=== PATIENT | female | born 1955 | race Caucasian/White ===

== ENCOUNTER → 2017-03-03 | Outpatient (CLI) | payer BC ==
[2016-11-24 08:00] VITALS: BP 131/69
[~2017-03-03] MED LIST: APRE30TA2 PO; ASPI-482 PO; BUDE0.5A11 NEB; CHOL2000 PO; CIPR250T30 PO; COLC0.6T34 PO; CYAN10005 PO; FEBU80TA2 PO; FEXO180T16 PO; FEXO60TA25 PO; FLUO20CA16 PO; FLUT1DIS3 INH; HYDR12.553 PO; INSU100I17 SQ; INSU200I4 SQ; IRON1TAB30 PO; MAGN400T22 PO; METF500T4 PO; METF500T9 PO; MULT-208 PO; OLME1TAB23 PO; OLME20TA19 PO; OMEG1CAP2 PO; PANT40TA3 PO; PRED-220 PO; TRAM50TA PO
--- NOTE | 2017-03-03 13:51 | RAD ---
DATE: DATE: 03/03/2017 EXAM: MAMMO GEOVANNI SCREENING BILATERAL HISTORY: Screening COMPARISON: 11/03/2015 This study was interpreted with the benefit of Computerized Aided Detection (CAD ). FINDINGS: Breast Density: SCATTERED The breast parenchyma shows scattered fibroglandular densities. Breast parenchyma level B. There has been little change in the appearance of the breasts compared to the previous exam IMPRESSION: Benign findings BI-RADS CATEGORY: 2 BENIGN FINDING(S) RECOMMENDED FOLLOW-UP: 12M 12 MONTH FOLLOW-UP PQRS compliance statement: Patient information was entered into a reminder system with a target due date 03/03/2018 for the next mammogram. Mammography is a sensitive method for finding small breast cancers, but it does not detect them all and is not a substitute for careful clinical examination. A negative mammogram does not negate a clinically suspicious finding and should not result in delay in biopsying a clinically suspicious abnormality. "Our facility is accredited by the [employer] Mammography Program." JAILENE
== END | disposition home or self-care (01) ==
LOC: MAMMO 07:45
PROVIDERS: ATTEND Family Medicine
DX: Z12.31 Encounter for screening mammogram for malignant neoplasm of breast (principal)
CPT/HCPCS: 77063; G0202; 77067

== ENCOUNTER → 2017-07-27 | Outpatient (CLI) | payer BC ==
[2016-11-24 08:00] VITALS: BP 131/69
--- NOTE | 2017-07-27 19:17 | RAD ---
Left lower extremity venous duplex study 07/27/2017 Clinical History: Left leg swelling for several months with palpable abnormality involving the posterior thigh. Technique: Using a combination of real time ultrasound imaging and color-flow and pulse Doppler imaging techniques along with graded compression and augmentation, duplex evaluation of the deep venous system of the left lower extremity was performed. Multiple images were obtained. Findings: There is no sonographic evidence of deep venous thrombosis involving the visualized deep venous structures of left lower extremity. No abnormal soft tissue mass or fluid collection is seen within the posterior left thigh in the area of the patient's pain. Impression: Negative study. Electronically signed by: Taras Cardona MD (07/27/2017 7:14 PM) [facility]
== END | disposition home or self-care (01) ==
LOC: US 16:45
PROVIDERS: ATTEND Family Medicine
DX: M79.605 Pain in left leg (principal); M79.89 Other specified soft tissue disorders; E11.8 Type 2 diabetes mellitus with unspecified complications
CPT/HCPCS: 93971

== ENCOUNTER → 2017-10-19 | Outpatient (CLI) | payer BC ==
[2016-11-24 08:00] VITALS: BP 131/69
--- NOTE | 2017-10-19 13:22 | RAD ---
Chest, 2 views, 10/19/2017: History: Cough Comparison is made to a study from 11/26/2014. The heart size and pulmonary vascularity are normal. No pulmonary infiltrates are seen. There is no evidence of pleural fluid. Mild spurring is present in the spine. IMPRESSION: No acute cardiopulmonary abnormality is detected.
== END | disposition home or self-care (01) ==
LOC: RAD 13:03
PROVIDERS: ATTEND Family Medicine
DX: R05 Cough (principal); N39.46 Mixed incontinence
CPT/HCPCS: 71046

== ENCOUNTER 2017-11-02 08:19 | Observation (INO) | payer BC ==
[~2017-11-02] VITALS: Ht 157.5 cm; Wt 95.0 kg
--- NOTE | 2017-11-02 08:43 | RAD ---
CT head without contrast History: Right facial droop and tongue numbness beginning at 0800 hours, code stroke. Comparison: CT head 10/08/2014. Procedure: Axial images are obtained of the head from the skull base through the vertex without IV contrast. One or more of the following individualized dose reduction techniques were utilized for the study: Automated exposure control Adjustment of mA and/or kV according to patient's size Use of iterative reconstruction technique. Findings: The ventricles and sulci are normal for the patient's age. No mass-effect, intracranial mass, midline shift, hemorrhage or obvious acute infarction is identified. Basilar cisterns are patent. Bone windows demonstrate no significant calvarial abnormality. Incompletely seen is bilateral maxillary sinus disease. Impression: 1. No acute intracranial process. Please note that CT can be relatively insensitive to acute ischemic infarction for up to 24 hours after symptom onset. 2. Results discussed with emergency department staff, Dr. Nuno, at 0840 hours.
[2017-11-02 08:53] LABS: BASO # 0.1 x10^3/uL (0.0-0.2); BASO % 1 % (0-3); EOS # 0.2 x10^3/uL (0.0-0.7); EOS % 2 % (0-3); HEMATOCRIT 38.9 % (36.0-47.0); HEMOGLOBIN 12.4 g/dL (12.0-15.5); LYMPH # 3.1 x10^3/uL (1.0-4.8); LYMPH % 27 % (24-48); MEAN CORPUSCULAR HEMOGLOBIN 24 pg (25-35); MEAN CORPUSCULAR HGB CONC 32 g/dL (31-37); MEAN CORPUSCULAR VOLUME 76 fL (79-100); MONO # 0.8 x10^3/uL (0.0-1.1); MONO % 7 % (0-9); NEUT # 7.5 x10^3uL (1.8-7.7); NEUT % 64 % (31-73); PLATELET COUNT 295 x10^3/uL (140-400); RED BLOOD COUNT 5.14 x10^6/uL (3.50-5.40); RED CELL DISTRIBUTION WIDTH 16.6 % (11.5-14.5); WHITE BLOOD COUNT 11.7 x10^3/uL (4.0-11.0)
[2017-11-02] MEDS ORDERED: ACETAMINOPHEN 500 MG TABLET PO ONE (09:00)
[2017-11-02] MEDS ORDERED: ONDANSETRON PF 4 MG/2 ML VIAL. IV PRN (09:00)
[2017-11-02] MEDS ORDERED: ACETAMINOPHEN 325 MG TABLET PO PRN (09:00)
[2017-11-02] MEDS ORDERED: ASPIRIN 325 MG TABLET PO ONE (09:00)
--- NOTE | 2017-11-02 09:14 | ED.ADGEN ---
Past History Past Medical History: Diabetes, GERD, Hypertension, Other Past Surgical History: Cholecystectomy, Hysterectomy Alcohol Use: None Drug Use: None Adult General Chief Complaint Chief Complaint FACIAL WEAKNESS HPI HPI Patient is a 61 year old female who presents with R side facial weakness and inability to close her R eye starting around 8 am. She also states she awoke with a headache, which is not common for her. She reports R tongue numbness as well. Coworkers noted facial droop. No prior strokes, no h/o bells palsy, reports recent post-nasal drip, otherwise she has been feeling well. Normally takes 81 mg asa daily, none yet today, no other anticoagulation. PCP is Dr. Winston. Review of Systems Review of Systems Constitutional: Denies fever or chills [] Eyes: Denies change in visual acuity, redness, or eye pain [] HENT: per hpi Respiratory: Denies cough or shortness of breath [] Cardiovascular: Denies chest pain GI: Denies abdominal pain, nausea, vomiting, bloody stools or diarrhea [] : Denies dysuria or hematuria [] Musculoskeletal: Denies back pain or joint pain [] Integument: Denies rash or skin lesions [] Neurologic: per hpi, denies focal extremity weakness, denies ataxia Current Medications Current Medications Current Medications Medications (Trade) Dose Ordered Sig/Fish Start Time Stop Time Status Last Admin Dose Admin Acetaminophen (Tylenol) 1,000 mg 1X ONCE 11/02/17 09:00 11/02/17 09:17 DC 11/02/17 09:10 1,000 MG Aspirin (Angeles Aspirin) 325 mg 1X ONCE 11/02/17 09:00 11/02/17 09:01 DC 11/02/17 09:10 325 MG Ondansetron HCl (Zofran) 4 mg PRN Q4HRS PRN 11/02/17 09:00 11/03/17 08:59 Allergies Allergies Allergies Coded Allergies Type Severity Reaction Last Updated Verified Penicillins Allergy Intermediate 11/22/16 Yes Sulfa (Sulfonamide Antibiotics) Allergy Intermediate 11/22/16 Yes sitagliptin Allergy Intermediate 11/22/16 Yes Physical Exam Physical Exam Constitutional: Well developed, well nourished, no acute distress, non-toxic appearance. [] HENT: Normocephalic, atraumatic, bilateral external ears normal, oropharynx moist, no oral exudates, nose normal. [] Eyes: PERRLA, EOMI, conjunctiva normal, no discharge, not blinking with right eye normally, she is able to close the eye completely when she attempted to forcefully close the eye Neck: Normal range of motion, no tenderness, supple, no stridor, no nuchal rigidity Cardiovascular:Heart rate regular with regular rhythm, no murmur [] Lungs & Thorax: Bilateral breath sounds clear to auscultation, no wheeze or crackles Abdomen: soft, no tenderness, no masses, no pulsatile masses. [] Skin: Warm, dry, no erythema, no rash. [] Back: No tenderness, no CVA tenderness. [] Extremities: No tenderness, no cyanosis, no clubbing, ROM intact, no edema. 5/5 bilateral hand house mover and bilateral hip flexors Neurologic: Alert and oriented X 3, normal motor function,R side facial droop/ loss of labial fold at rest, she is unable to blow air into the R cheek, CN's intact with exception of decreased strength of CNXI to the R head turn, she has decreased closures of R eyelid but is able to full close, when she raises her eyebrows there is symmetry across the forehead. Psychologic: Affect normal, judgement normal, mood normal. [] Current Patient Data Lab Results Laboratory Tests Test 11/02/17 08:29 11/02/17 08:43 Glucose (Fingerstick) 168 mg/dL (70-99) H White Blood Count 11.7 x10^3/uL (4.0-11.0) H Red Blood Count 5.14 x10^6/uL (3.50-5.40) Hemoglobin 12.4 g/dL (12.0-15.5) Hematocrit 38.9 % (36.0-47.0) Mean Corpuscular Volume 76 fL (79-100) L Mean Corpuscular Hemoglobin 24 pg (25-35) L Mean Corpuscular Hemoglobin Concent 32 g/dL (31-37) Red Cell Distribution Width 16.6 % (11.5-14.5) H Platelet Count 295 x10^3/uL (140-400) Neutrophils (%) (Auto) 64 % (31-73) Lymphocytes (%) (Auto) 27 % (24-48) Monocytes (%) (Auto) 7 % (0-9) Eosinophils (%) (Auto) 2 % (0-3) Basophils (%) (Auto) 1 % (0-3) Neutrophils # (Auto) 7.5 x10^3uL (1.8-7.7) Lymphocytes # (Auto) 3.1 x10^3/uL (1.0-4.8) Monocytes # (Auto) 0.8 x10^3/uL (0.0-1.1) Eosinophils # (Auto) 0.2 x10^3/uL (0.0-0.7) Basophils # (Auto) 0.1 x10^3/uL (0.0-0.2) Prothrombin Time 10.4 SEC (9.4-11.4) Prothrombin Time INR 1.0 (0.9-1.1) PTT 28 SEC (23-33) Sodium Level 139 mmol/L (136-145) Potassium Level 4.5 mmol/L (3.5-5.1) Chloride Level 104 mmol/L (98-107) Carbon Dioxide Level 24 mmol/L (21-32) Anion Gap 11 (6-14) Blood Urea Nitrogen 15 mg/dL (7-20) Creatinine 1.0 mg/dL (0.6-1.0) Estimated GFR (Cockcroft-Gault) 56.4 BUN/Creatinine Ratio 15 (6-20) Glucose Level 161 mg/dL (70-99) H Calcium Level 8.7 mg/dL (8.5-10.1) Total Bilirubin 0.7 mg/dL (0.2-1.0) Aspartate Amino Transferase (AST) 48 U/L (15-37) H Alanine Aminotransferase (ALT) 48 U/L (14-59) Alkaline Phosphatase 110 U/L (46-116) Total Protein 7.7 g/dL (6.4-8.2) Albumin 3.2 g/dL (3.4-5.0) L Albumin/Globulin Ratio 0.7 (1.0-1.7) L EKG EKG At 0849: 89 bpm, sinus, normal axis, normal intervals, no ST elevation or depression, nonischemic T waves, interpreted by pa Radiology/Procedures Radiology/Procedures CT head: Impression: 1. No acute intracranial process. Please note that CT can be relatively insensitive to acute ischemic infarction for up to 24 hours after symptom onset. Course & Med Decision Making Course & Med Decision Making Pertinent Labs and Imaging studies reviewed. (See chart for details) Acute check performed, patient taken to CT scanner as a code stroke. Patient's symptoms most likely consistent with Boyle's palsy however is complicated by the fact that she woke up with a headache, has symmetry of her bilateral forehead and has weakness with turning her head. Her NIH is 1, she was given an aspirin after review of the CT of her head. I spoke with Dr. Rivera who did not recommend TPA but did recommend admission to the hospital and he will evaluate her this morning. I notified the patient's primary care physician of the plans for admission, I spoke with Dr. Garrido, who accepted the patient for admission. Plan to transfer via [facility]. Pt is stable at this time, headache treated with PO Tylenol Final Impression Final Impression Acute Boyle's Palsy vs CVA Headache.[] Problems: Dragon Disclaimer Dragon Disclaimer This electronic medical record was generated, in whole or in part, using a voice recognition dictation system. MARIUM LARSON MD Nov 02, 2017 09:14
[2017-11-02 09:34] LABS: ALBUMIN 3.2 g/dL (3.4-5.0); ALBUMIN/GLOBULIN RATIO 0.7 (1.0-1.7); CALCIUM 8.7 mg/dL (8.5-10.1); GFR 56.4; POTASSIUM 4.5 mmol/L (3.5-5.1); TOTAL BILIRUBIN 0.7 mg/dL (0.2-1.0); TOTAL PROTEIN 7.7 g/dL (6.4-8.2)
[2017-11-02 10:58] VITALS: BP 125/70
[2017-11-02] MEDS ORDERED: OLME40TA12 PO (13:42)
[2017-11-02] MEDS ORDERED: HYDR-2766 PO (13:42)
[2017-11-02] MEDS ORDERED: TRAM50TA PO (13:42)
--- NOTE | 2017-11-02 13:57 | EKG ---
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
[2017-11-02 15:36] VITALS: BP 127/69
[2017-11-02] MEDS ORDERED: HYDROcodone/APAP 10/325 1 TAB TABLET PO PRN (16:15)
[2017-11-02] MEDS ORDERED: traMADol 50 MG TABLET PO PRN (16:15)
[2017-11-02] MEDS: INSULIN ASPART 300 UNITS/3 ML INSULN.PEN SQ SCH (17:07)
--- NOTE | 2017-11-02 17:50 | HP ---
ADMIT DATE: 11/02/2017 HISTORY OF PRESENT ILLNESS: The patient is a 61-year-old female patient who came to the Emergency Room with right-sided facial weakness and inability to close the right eye starting around 8 o'clock in the morning. She also states that she walked with a headache that is not common for her. She reports right tongue numbness as well. 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 She has no history of strokes or history of Boyle's palsy before, did have chronic cough variant, bronchial asthma, and has postnasal drip. She takes about 81 mg of aspirin daily. She was evaluated in the Emergency Room, she was extensively investigated clinically and she had had imaging. Her CT scan of the head showed that the ventricles and sulci are normal for the patient's age. No mass effect, intracranial mass, midline shift, hemorrhage or obvious acute infarction identified. Basilar cisterns are patent. Bone windows demonstrate no significant calvarial abnormality incompletely seen. She has bilateral maxillary sinus disease. Her lab works were essentially unremarkable and was admitted for further evaluation and treatment and we did consult Dr. Rivera to evaluate the patient. PAST MEDICAL HISTORY: Significant for type 2 diabetes mellitus, hypertension, hyperlipidemia, cough variant bronchial asthma, gastroesophageal reflux disease. She has also psoriatic arthritis affecting both hands and feet. PAST SURGICAL HISTORY: Significant for total abdominal hysterectomy, bilateral salpingo-oophorectomy, cholecystectomy, appendectomy, carpal tunnel release on the right side. She has also de Quervain's tenosynovitis on the left side. She has bilateral cataract extraction as well as bronchoscopy. ALLERGIES: She is allergic to PENICILLIN, SULFA DRUGS, and SITAGLIPTIN. MEDICATIONS: She is currently on the following medication, aspirin 81 mg once a day, cholecalciferol, vitamin D3 2000 international units once a day, cyanocobalamin 500 mcg once a day, Uloric 0.5 mg daily, fluoxetine for Prozac 40 mg once a day, hydrocodone 10/325 one tablet every 6 hours. She is on NovoLog FlexPen 35 units subcutaneously before meals, and Trasiba FlexTouch, she takes 125 units subcutaneously at bedtime, olmesartan medoxomil for Benicar 40 mg once a day, omega-3 fatty acid for Lovaza 2 tablets twice a day. She is also on Protonix 40 mg once a day, and tramadol 50 mg every 6 hours. FAMILY HISTORY: She has one brother older and has coronary artery disease and has had myocardial infarction. Her father at age 94, because of old age. Mother at age 65, because of his gout, aortic aneurysm rupture. SOCIAL HISTORY: She has 2 children from previous marriage. She never smoked, does not drink alcohol or use any recreational drugs. 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 REVIEW OF SYSTEMS: The patient denied any blurring of vision, did have bilateral cataract extraction, but denied any glaucoma or macular degeneration. Denied any earache, tinnitus or sensorineural deafness. Denied any nosebleeds, stuffy nose or postnasal drip. Denied any sore throat, sore tongue, toothache, hoarseness of voice or difficulty swallowing. Did complain of numbness on her tongue on the right side. Denied any nausea, vomiting, diarrhea or constipation. Denied any hematemesis, melena or hematochezia. Denied any dysuria, frequency or hematuria. Denied any chest pain, did complain of shortness of breath at that time with a cough, which is mostly dry. Denied any chills, rigors, or fever. Denied any dizziness, lightheadedness, or vertigo. PHYSICAL EXAMINATION: GENERAL: On arrival to the Emergency Room, she looked well and was clearly in no apparent respiratory distress, pale, jaundice, cyanosis or thyromegaly. No jugular venous distention. No limb edema. VITAL SIGNS: Her heart rate was 85, blood pressure 131/65, temperature was 98.4, respiratory rate was 18, and oxygen saturation was 96%. HEAD, EYES, EARS, NOSE, AND THROAT: Normocephalic, atraumatic. NECK: Supple. HEART: Showed normal first and second heart sounds with no gallop, rub or murmur. CHEST: Clear to auscultation. No crepitation or rhonchi. ABDOMEN: Distended, soft, and nontender. No guarding, rigidity, no organomegaly. Hernial orifices intact. Bowel sounds normal. NEUROLOGIC: She is awake, alert, responding appropriately. She has definitely right-sided facial droop and Boyle's sign inability to close the right eye. He did also complain of numbness in her right side of her tongue, but otherwise all other cranial nerves are intact. She is able to move her extremities without difficulty. She ambulates without assistance or assistive devices. LABORATORY DATA: Showed that her white cell count was 11,700; hemoglobin 12.4, hematocrit 38.9, MCV 76, and platelet count 295,000. Her serum sodium was 139, potassium 4.5, chloride 104, bicarbonate 24, anion gap of 11, BUN 15, creatinine 1, estimated GFR was 56 mL per minute, his glucose 161, calcium was 8.7. Total bilirubin, AST, ALT, alkaline phosphatase were normal. Total protein 7.7, albumin 3.2. His prothrombin time was 10.4, INR of 1, aPTT was 28. His CT scan of the head showed that he has no intracranial process. The ventricles and sulci abnormal for the patient's age. No mass effect, intracranial mass, midline shift, hemorrhage or obvious acute infarcts were identified. Basilar cisterns are a patent IMPRESSION: In summary, this is a 61-year-old female patient, who came in with new onset of right-sided weakness consistent with acute Boyle's palsy versus cerebrovascular accident. There is also headache and some tingling and numbness in the right side of her tongue. PLAN: My plan is to continue with all her medication and consult Dr. Rivera as we might need to start the steroids as soon as possible. GEORGIE KELSEY MD DR: APRIL/jeovanny JOB#: [id number] / [id number]
[2017-11-02] MEDS: methylPREDNISolone SOD SUCC PF 125 MG/2 ML VIAL. IV SCH (19:22)
[2017-11-02 19:31] VITALS: BP 143/89
[2017-11-02] MEDS ORDERED: INSULIN DEGLUDEC SQ SCH (21:00)
[2017-11-02] MEDS ORDERED: INSULIN DETEMIR 300 UNITS/3 ML INSULN.PEN. SQ SCH (21:00)
[2017-11-02] MEDS ORDERED: PANTOPRAZOLE 40 MG TABLET. PO SCH (21:00)
[2017-11-02] MEDS: OMEGA-3 FATTY ACIDS/FISH OIL 1,000 MG CAPSULE. PO SCH (21:28)
[2017-11-02 23:04] VITALS: BP 127/72
[2017-11-03] MEDS: methylPREDNISolone SOD SUCC PF 125 MG/2 ML VIAL. IV SCH ×2 (05:05→14:06)
[2017-11-03 05:26] VITALS: BP 131/76
[2017-11-03] MEDS ORDERED: ASPIRIN ENTERIC COATED 81 MG TABLET.DR. PO SCH (08:00)
[2017-11-03] MEDS ORDERED: FLUoxetine HCL 20 MG CAPSULE PO SCH (08:00)
--- NOTE | 2017-11-03 08:04 | CONS ---
DATE OF CONSULTATION: 11/02/2017 REFERRING PHYSICIAN: Le Garrido M.D. REASON FOR CONSULTATION: Right facial palsy. HISTORY OF PRESENT ILLNESS: This is a 61-year-old right-handed female who was admitted through Emergency Room after she presented with a sudden onset of right facial drooping started at 8 o'clock. The patient also complains of difficulty closing her right eye completely, difficulty chewing on the right side; when she tried to drink liquid or water, the water comes out of her right side of the mouth. She had numbness and tingling of the right side of the tongue The patient stated approximately a week ago, she was suffering from a cough and possible upper respiratory infections. She was seen by her primary care doctor who gave her intramuscular shot of Rocephin and put her on inhaler and nebulizer. The patient also complains of global headaches. She denies photophobia or phonophobia, nausea, vomiting, chest pain, shortness of breath or palpitation. She denies numbness and paresthesia or weakness of the right upper and lower extremities. The patient denies any recent head injuries or fall. She never had any previous Boyle's palsy or stroke. Initial nonenhanced head CT scan revealed no acute intracranial process, otherwise unremarkable. PAST MEDICAL HISTORY: Significant for diabetes mellitus, hypertension, hyperlipidemia, cough variant, brachial asthma, GERD and psoriatic arthritis in the hands and feet. PAST SURGICAL HISTORY: Significant for abdominal hysterectomy, appendectomy, right carpal tunnel release, de Quervain's tenosynovitis on the left side and bilateral cataract extraction. SOCIAL HISTORY: The patient is . She has 3 children. She denies smoking but she drinks alcohol occasionally and she works in the [employer]. FAMILY HISTORY: One brother had coronary artery disease and myocardial infarction. He at the age of 94. Mother at age of 65 of gout and aortic aneurysm rupture. CURRENT HOME MEDICATIONS: Losartan 100 mg daily, Uloric 40 mg daily, Vitamin D3 2000 daily, vitamin B12 500 mcg daily, aspirin 81 mg daily, fish oil 2000 b.i.d., insulin detemir 125 units at bedtime, Protonix 40 mg daily, insulin NovoLog 25 units t.i.d. a.c. subacute, tramadol 50 mg q.6h. p.r.n. for pain, hydrocodone/acetaminophen 10/325 mg 1 tab q.6h. p.r.n. for headaches, Zofran 4 mg IV q.4h. p.r.n. ALLERGIES: SULFA DRUGS, PENICILLIN and SITAGLIPTIN. REVIEW OF SYSTEMS: A 10-point review of system was performed as mentioned above in history of present illness. PHYSICAL EXAMINATION: GENERAL: A moderately obese white female, not in acute distress with BMI of 36.6. VITAL SIGNS: Blood pressure 127/69, respiratory rate 20, pulse is 83, temperature is 98.4, oxygen saturation is 92% on room air. HEENT: Normocephalic, atraumatic, otherwise unremarkable. NECK: Supple. Negative for carotid bruit, lymphadenopathy or thyromegaly. LUNGS: Clear to A and P. CARDIOVASCULAR: Regular rate and rhythm, normal S1, S2. There is no S3, S4 or murmur. ABDOMEN: Soft. Bowel sounds positive. EXTREMITIES: Negative for cyanosis, clubbing, pitting edema. NEUROLOGIC: Mental status: The patient is alert and oriented x 3. Speech is fluent. There is no language dysfunction. Memory, judgment and abstracting thinking are normal. The patient denies hallucination or delusion. CRANIAL NERVES: Visual finley are full. The pupils are reactive to light and accommodation. The extraocular movements are intact. There is no nystagmus. There is peripheral type of right facial palsy. The patient has difficulty to close her eyes tightly compared to the left side. However, the forehead is spared. She cannot whistle and she had a lacrimation on the right side. She has a mild facial asymmetry on the right side when she smiles. She has numbness on the right side of the tongue. Otherwise, there is no facial sensory deficit. Hearing is intact bilaterally. The palate is elevated symmetrically. Sternocleidomastoid muscles are powerful bilaterally. The patient shrugs her shoulders symmetrically and protrudes her tongue in the midline without fasciculation or atrophy. Motor examination: No focal muscle bulk was seen. The tone is normal. The strength is 5/5 throughout. Sensory examination revealed normal pinprick, light touch, vibratory and position senses. Deep tendon reflexes were symmetric and active without pathology responses. Gait and coordinations are normal. DIAGNOSTIC: Nonenhanced head CT scan revealed no acute intracranial process. LABORATORY DATA: CBC revealed white blood cells of 11.7 thousand, hemoglobin 12.4, hematocrit 38.9, platelet count 295,000. Chemistry revealed sodium of 139, potassium 4.5, chloride 104, CO2 24, BUN 15, creatinine 1, glucose is 161. Calcium is 8.7. AST is slightly elevated at 48. Coagulation is normal. INR is 1 and PTT 28. IMPRESSION: 1. Right facial peripheral weakness with symptoms represent a Boyle's palsy; however, the right forehead is spared. 2. Multiple medical problems as outlined above, this includes hypertension; hyperlipidemia, diabetes mellitus, psoriatic arthritis, GERD. RECOMMENDATIONS: 1. We will start the patient on steroid intravenously, then switch to orally. 2. Continue with current management initiated by Dr. Garrido and her home medications. 3. We will follow up in the morning to rule out any clinical findings of central nervous system pathology. As on occasions, acute stroke may represent as a peripheral palsy. 3. We will follow the patient in the morning to rule out any other evidence of central nervous system pathology as sometimes acute stroke may represent with symptoms of peripheral palsy. In this case, a brain MRI will be recommended. M Tracey MOHR MD DR: NEIDA/jeovanny JOB#: [id number] / [id number]
[2017-11-03] MEDS: OMEGA-3 FATTY ACIDS/FISH OIL 1,000 MG CAPSULE. PO SCH (08:13)
[2017-11-03] MEDS: INSULIN ASPART 300 UNITS/3 ML INSULN.PEN SQ SCH ×2 (08:19→12:16)
[2017-11-03] MEDS ORDERED: CHOLECALCIFEROL (VITAMIN D3) 1,000 UNIT TABLET PO SCH (09:00)
[2017-11-03] MEDS ORDERED: FEBUXOSTAT 40 MG TABLET PO SCH (09:00)
[2017-11-03] MEDS ORDERED: CYANOCOBALAMIN (VITAMIN B-12) 1,000 MCG TABLET. PO SCH (09:00)
[2017-11-03] MEDS ORDERED: LOSARTAN 50 MG TABLET. PO SCH (09:00)
[2017-11-03 10:29] VITALS: BP 136/79
[2017-11-03] MEDS ORDERED: METH4TAB2 PO (14:33)
--- NOTE | 2017-11-03 23:53 | DS ---
DATE OF DISCHARGE: 11/03/2017 HOSPITAL COURSE: The patient is a 61-year-old female patient who came yesterday with a new onset of right-sided facial droop and difficulty closing her right eye and also some tingling in the right side of tongue. She was extensively investigated. There was no pathological finding on her CT scan and clinically, she does not have any other motor or sensory deficit. 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 She was given Solu-Medrol and was seen by Dr. Rivera who recommended that she can be discharged home to continue with Medrol Dosepak and to follow with him in 1 week's time and he will arrange for her to have an brain MRI if deemed necessary. PHYSICAL EXAMINATION: GENERAL: When I saw her today, she looked well and was clearly in no apparent respiratory distress, pale, jaundice, cyanosis, or thyromegaly. No jugular venous distension. No limb edema. VITAL SIGNS: Her heart rate was 90, blood pressure 136/79, temperature was 97.5, respiratory rate 20, and oxygen saturation was 93%. HEAD, EYES, EARS, NOSE AND THROAT: Normocephalic, atraumatic. NECK: Supple. HEART: Showed normal first and second heart sounds with no gallop, rub, or murmur. CHEST: Clear to auscultation. No crepitation or rhonchi. ABDOMEN: Distended, soft, nontender. NEUROLOGIC: She is awake, alert, responding appropriately. All her cranial nerves intact except she has right-sided facial palsy. She moves her extremities without difficulty. She ambulates without assistance or assistive devices. LABORATORY DATA: Showed that her serum sodium was 139, potassium 4.5, chloride 104, bicarbonate 24, anion gap of 11, BUN 15, creatinine 1, estimated GFR was 56 mL per minute. Her glucose was 161, calcium was 8.7. Total bilirubin, AST, ALT, alkaline phosphatase were normal. Total protein was 7.7, albumin was 3.2. Her white cell count was 11,700; hemoglobin 12.4, hematocrit 39, MCV 76, and platelet count 295,000. Her prothrombin time was 10.4, INR of 1, aPTT was 28. DISCHARGE MEDICATIONS: The patient was discharged home to continue on following medications: Medrol Dosepak as directed, aspirin 81 mg once a day, ergocalciferol, vitamin D3 2000 international unit once a day, cyanocobalamin 500 mcg once a day, Uloric 40 mg once a day, fluoxetine for Prozac 40 mg once a day, hydrocodone/APAP 10/325 one tablet every 6 hours as needed. She is on NovoLog insulin 35 units before meals and Tresiba 125 units at bedtime. She is on Benicar 40 mg once a day, omega-3 fatty acid 1 gram twice a day, pantoprazole, Protonix 40 mg once a day, and tramadol 50 mg every 6 hours as needed. FINAL DISCHARGE DIAGNOSES: 1. Boyle's palsy. Other medical problems include: A. Hypertension. B. Hyperlipidemia. C. Diabetes mellitus. D. Psoriatic arthritis. E. Gastroesophageal reflux disease. She was discharged on a tapering course of steroids and will follow with Dr. Rivera in 1 week's time. GEORGIE KELSEY MD DR: APRIL/jeovanny JOB#: [id number] / [id number]
== END 2017-11-03 14:42 | disposition home or self-care (01) ==
LOC: ER 08:19 → 1 SOUTH 09:05 → INTOOBSV 09:05
PROVIDERS: ADMIT Internal Medicine; ATTEND Internal Medicine
DX: G51.0 Bell's palsy (principal); E11.9 Type 2 diabetes mellitus without complications; I10 Essential (primary) hypertension; E78.5 Hyperlipidemia, unspecified; J45.909 Unspecified asthma, uncomplicated; K21.9 Gastro-esophageal reflux disease without esophagitis; L40.50 Arthropathic psoriasis, unspecified; Z98.42 Cataract extraction status, left eye; Z98.41 Cataract extraction status, right eye; Z90.710 Acquired absence of both cervix and uterus; Z82.49 Family history of ischemic heart disease and other diseases of the circulatory system
CPT/HCPCS: 36415; 70450; 80053; 82947; 85025; 85610; 85730; 93005; 96372; 96374; 96376; 99285; G0378; J1815; J2930; G0379

== ENCOUNTER 2019-11-07 15:02 | Inpatient (IN) | payer BC ==
[~2019-11-07] VITALS: Ht 157.5 cm; Wt 99.6 kg
[~2019-11-07 15:02] MED LIST changes: +CYAN-25 PO; -CYAN10005 PO; +HYDR-2769 PO; +METF500T11 PO; +METF500T16 PO; -METF500T4 PO; -METF500T9 PO; +METH4TAB2 PO; +OLME20TA17 PO; -OLME20TA19 PO; +OLME40TA12 PO
[2019-11-07] MEDS ORDERED: IV NORMAL SALINE 1,000ML 1,000 ML IV SCH (15:22)
[2019-11-07] MEDS ORDERED: ASPIRIN 81 MG TAB.CHEW PO ONE (15:30)
--- NOTE | 2019-11-07 15:38 | PHYS DOC ---
Past History Past Medical History: Arthritis, Depression, Diabetes, Hypertension Past Surgical History: Cholecystectomy, Hysterectomy, Oophorectomy, Other Additional Past Surgical Histo: bilat wrist Alcohol Use: None Drug Use: None Adult General Chief Complaint Chief Complaint: CHEST PAIN HPI HPI 63-year-old female presents with chest pain. She's been having chest discomfort for the last 2-3 days. She describes it as a heaviness feeling in the central part of her chest. She has also had some shortness of breath. She denies diaphoresis. It is not worse with exertion. At its worst it is 9 out of 10. It is currently 7 out of 10. She went to her PCP who sent her here. Patient has no history of cardiac disease. She does have hypertension that is usually controlled, though was high today. 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 She denies fever or chills. She has not had a cough. No history of COPD or smoking. Review of Systems Review of Systems Constitutional: Denies fever or chills [] Eyes: Denies change in visual acuity, redness, or eye pain [] HENT: Denies nasal congestion or sore throat [] Respiratory: shortness of breath [] Cardiovascular: No additional information not addressed in HPI [] GI: Denies abdominal pain, nausea, vomiting, bloody stools or diarrhea [] : Denies dysuria or hematuria [] Musculoskeletal: Denies back pain or joint pain [] Integument: Denies rash or skin lesions [] Neurologic: Denies headache, focal weakness or sensory changes [] Endocrine: Denies polyuria or polydipsia [] All other systems were reviewed and found to be within normal limits, except as documented in this note. Current Medications Current Medications Current Medications Medications (Trade) Dose Ordered Sig/Fish Start Time Stop Time Status Last Admin Dose Admin Aspirin (Children'S Aspirin) 324 mg 1X ONCE 11/07/19 15:30 11/07/19 15:31 DC Sodium Chloride 1,000 ml @ 1,000 mls/hr Q1H 11/07/19 15:22 11/07/19 16:21 Allergies Allergies Allergies Coded Allergies Type Severity Reaction Last Updated Verified Penicillins Allergy Intermediate 11/07/19 Yes Sulfa (Sulfonamide Antibiotics) Allergy Intermediate 11/07/19 Yes sitagliptin Allergy Intermediate 11/07/19 Yes Uncoded Allergies Type Severity Reaction Last Updated Verified biologics Allergy Unknown Rash 11/07/19 Physical Exam Physical Exam Constitutional: Well developed, morbidly obese, well nourished, no acute distress, non-toxic appearance. [] HENT: Normocephalic, atraumatic, bilateral external ears normal, oropharynx moist, no oral exudates, nose normal. [] Eyes: PERRLA, EOMI, conjunctiva normal, no discharge. [] Neck: Normal range of motion, no tenderness, supple, no stridor. [] Cardiovascular: Heart rate 90, regular rhythm, no murmur [] Lungs & Thorax: Bilateral breath sounds clear to auscultation [] Abdomen: Bowel sounds normal, soft, no tenderness, no masses, no pulsatile m asses. [] Skin: Warm, dry, no erythema, no rash. [] Back: No tenderness, no CVA tenderness. [] Extremities: No tenderness, no cyanosis, no clubbing, ROM intact, no edema. [] Neurologic: Alert and oriented X 3, normal motor function, normal sensory function, no focal deficits noted. [] Psychologic: Affect normal, judgement normal, mood normal. [] Current Patient Data Vital Signs Vital Signs Date Time Temp Pulse Resp B/P (MAP) Pulse Ox O2 Delivery O2 Flow Rate FiO2 11/07/19 15:08 98.5 97 25 165/100 (121) 96 Room Air EKG EKG Sinus rhythm, rate 90, normal axis, no ST elevations or depressions.[] Radiology/Procedures Radiology/Procedures [] Impressions: AP portable chest radiograph 11/07/2019 Clinical History: Chest pain. An AP erect portable digital radiograph of the chest was obtained. Comparison study is dated 10/19/2017. The cardiac silhouette is mildly enlarged. The thoracic aorta is mildly tortuous. No acute infiltrate is seen. No pleural effusion or pneumothorax is noted. Degenerative changes are seen involving the thoracic spine and both shoulders. Impression: No acute abnormality is seen. Electronically signed by: Taras Cardona MD (11/07/2019 3:46 PM) [id number] DICTATED AND SIGNED BY: TARAS CARDONA MD DATE: 11/07/19 1546 CC: KEATON MORGAN MD; HITESH KIM DO ~ Course & Med Decision Making Course & Med Decision Making Pertinent Labs and Imaging studies reviewed. (See chart for details) The patient's labs are unremarkable except for elevated glucose. Her anion gap was normal. Her troponin is negative. Her EKG is unremarkable. Chest x-rays unremarkable her heart score is a 4. I will admit the patient for further trending inoculation. I spoke with Dr. Garrido and he has accepted the patient for admission. [] Dragon Disclaimer Dragon Disclaimer This electronic medical record was generated, in whole or in part, using a voice recognition dictation system. The HEART Score for CP Pts HEART Score for Chest Pain: HEART Score for Chest Pain Response (Comments) Value History Highly Suspicious 2 ECG Normal 0 Age >45 - < 65 1 Risk Factors 1 or 2 Risk Factors 1 Troponin < Normal Limit 0 Total 4 Risk Factors: Risk Factors: DM, Current or recent (<one month) smoker, HTN, HLP, family history of CAD, obesity. Risk Scores: Score 0 - 3: 2.5% MACE over next 6 weeks - Discharge Home Score 4 - 6: 20.3% MACE over next 6 weeks - Admit for Clinical Observation Score 7 - 10: 72.7% MACE over next 6 weeks - Early Invasive Strategies Departure Departure: Impression: Primary Impression: Chest pain Disposition: ADMITTED INPATIENT Admitting Physician: Le Garrido Condition: STABLE Referrals: KEATON MORGAN MD (PCP) Problem Qualifiers Primary Impression: Chest pain Chest pain type: precordial pain Qualified Codes: R07.2 - Precordial pain HITESH KIM DO Nov 07, 2019 15:38
--- NOTE | 2019-11-07 15:50 | RAD ---
AP portable chest radiograph 11/07/2019 Clinical History: Chest pain. An AP erect portable digital radiograph of the chest was obtained. Comparison study is dated 10/19/2017. The cardiac silhouette is mildly enlarged. The thoracic aorta is mildly tortuous. No acute infiltrate is seen. No pleural effusion or pneumothorax is noted. Degenerative changes are seen involving the thoracic spine and both shoulders. Impression: No acute abnormality is seen. Electronically signed by: Taras Cardona MD (11/07/2019 3:46 PM) [id number]
[2019-11-07 16:32] LABS: BASO # 0.1 x10^3/uL (0.0-0.2); BASO % 1 % (0-3); EOS # 0.2 x10^3/uL (0.0-0.7); EOS % 1 % (0-3); HEMATOCRIT 43.6 % (36.0-47.0); HEMOGLOBIN 13.5 g/dL (12.0-15.5); LYMPH # 5.3 x10^3/uL (1.0-4.8); LYMPH % 33 % (24-48); MEAN CORPUSCULAR HEMOGLOBIN 24 pg (25-35); MEAN CORPUSCULAR HGB CONC 31 g/dL (31-37); MEAN CORPUSCULAR VOLUME 77 fL (79-100); MONO # 1.1 x10^3/uL (0.0-1.1); MONO % 7 % (0-9); NEUT # 9.4 x10^3uL (1.8-7.7); NEUT % 58 % (31-73); PLATELET COUNT 345 x10^3/uL (140-400); RED BLOOD COUNT 5.68 x10^6/uL (3.50-5.40); RED CELL DISTRIBUTION WIDTH 16.9 % (11.5-14.5); WHITE BLOOD COUNT 16.1 x10^3/uL (4.0-11.0)
[2019-11-07 16:49] LABS: CREATININE 1.1 mg/dL (0.6-1.0); GFR 50.2
[2019-11-07] MEDS ORDERED: NITROGLYCERIN SUBLINGUAL 0.4 MG BOTTLE OF 25. SL PRN (17:00)
[2019-11-07 17:01] LABS: ALBUMIN 3.5 g/dL (3.4-5.0); ALBUMIN/GLOBULIN RATIO 0.8 (1.0-1.7); TOTAL BILIRUBIN 0.4 mg/dL (0.2-1.0); TOTAL PROTEIN 7.8 g/dL (6.4-8.2)
--- NOTE | 2019-11-07 17:14 | EKG ---
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
[2019-11-07] MEDS ORDERED: ACETAMINOPHEN 325 MG TABLET PO PRN ×2 (18:15→19:15)
[2019-11-07] MEDS ORDERED: MORPHINE SULFATE 2 MG/ML DISP.SYRIN. IV PRN ×2 (18:15→19:45)
[2019-11-07] MEDS ORDERED: ONDANSETRON PF 4 MG/2 ML VIAL. IV PRN ×2 (18:15→19:15)
[2019-11-07 18:16] LABS: BACTERIA,URINE MANY /HPF (0-FEW); BILIRUBIN,URINE NEG (NEG); CLARITY,URINE HAZY; COLOR,URINE YELLOW; GLUCOSE,URINE 250 mg/dL (NEG); NITRITE,URINE POS (NEG); SQUAMOUS EPITHELIAL CELL,UR OCC /LPF; UROBILINOGEN,URINE 0.2 mg/dL (0.2 mg/dL); WBC,URINE 20-40 /HPF (0-4)
[2019-11-07 18:41] VITALS: BP 153/83
[2019-11-07 19:00] VITALS: BP 145/82
[2019-11-07 19:12] LABS: % EOS 3 % (0-5); % LYMPHS 34 % (24-48); % MONOS 6 % (0-10); % SEGS 57 % (35-66); ANISOCYTOSIS SLIGHT; PLT ESTIMATE INCREASED (ADEQUATE); TEAR DROP CELLS OCC
[2019-11-07] MEDS ORDERED: DEXTROSE 50% 25 GM / 50ML DISP.SYRIN. IV PRN (19:15)
[2019-11-07] MEDS ORDERED: HYDROcodone/APAP 10/325 1 TAB TABLET PO PRN (19:30)
[2019-11-07] MEDS ORDERED: INSULIN LISPRO 300 UNITS/3 ML VIAL. SQ SCH (21:00)
[2019-11-07] MEDS: INSULIN DEGLUDEC 100 UNIT SQ SCH (21:00)
[2019-11-07] MEDS ORDERED: PANTOPRAZOLE 40 MG TABLET. PO SCH (21:00)
[2019-11-07 22:48] VITALS: BP 117/70
[2019-11-08 05:54] VITALS: BP 136/83
[2019-11-08 06:14] LABS: BASO # 0.1 x10^3/uL (0.0-0.2); BASO % 1 % (0-3); EOS # 0.3 x10^3/uL (0.0-0.7); EOS % 3 % (0-3); HEMATOCRIT 41.6 % (36.0-47.0); HEMOGLOBIN 12.9 g/dL (12.0-15.5); LYMPH # 3.5 x10^3/uL (1.0-4.8); LYMPH % 35 % (24-48); MEAN CORPUSCULAR HEMOGLOBIN 24 pg (25-35); MEAN CORPUSCULAR HGB CONC 31 g/dL (31-37); MEAN CORPUSCULAR VOLUME 77 fL (79-100); MONO # 0.9 x10^3/uL (0.0-1.1); MONO % 9 % (0-9); NEUT # 5.3 x10^3uL (1.8-7.7); NEUT % 52 % (31-73); PLATELET COUNT 291 x10^3/uL (140-400); RED CELL DISTRIBUTION WIDTH 16.5 % (11.5-14.5); WHITE BLOOD COUNT 10.1 x10^3/uL (4.0-11.0)
[2019-11-08 06:27] LABS: ALBUMIN 3.2 g/dL (3.4-5.0); ALBUMIN/GLOBULIN RATIO 0.8 (1.0-1.7); CALCIUM 8.7 mg/dL (8.5-10.1); CREATININE 0.9 mg/dL (0.6-1.0); GFR 63.2; MAGNESIUM 1.5 mg/dL (1.8-2.4); POTASSIUM 4.2 mmol/L (3.5-5.1); TOTAL BILIRUBIN 0.6 mg/dL (0.2-1.0); TOTAL PROTEIN 7.3 g/dL (6.4-8.2)
[2019-11-08] MEDS ORDERED: INSULIN LISPRO 300 UNITS/3 ML VIAL. SQ SCH (07:30)
[2019-11-08] MEDS ORDERED: ASPIRIN ENTERIC COATED 81 MG TABLET.DR. PO SCH (08:00)
[2019-11-08] MEDS ORDERED: FLUoxetine HCL 20 MG CAPSULE PO SCH (08:00)
[2019-11-08] MEDS: INSULIN DEGLUDEC 100 UNIT SQ SCH (08:11)
[2019-11-08] MEDS: INSULIN ASPART 60 UNIT SQ SCH ×2 (08:18→12:00)
[2019-11-08] MEDS ORDERED: CYANOCOBALAMIN (VITAMIN B-12) 1,000 MCG TABLET. PO SCH (09:00)
[2019-11-08] MEDS ORDERED: FEBUXOSTAT 40 MG TABLET PO SCH (09:00)
[2019-11-08] MEDS ORDERED: LOSARTAN 50 MG TABLET. PO SCH (09:00)
[2019-11-08] MEDS ORDERED: CHOLECALCIFEROL (VITAMIN D3) 1,000 UNIT TABLET PO SCH (09:00)
[2019-11-08] MEDS: NITROGLYCERIN SUBLINGUAL 0.4 MG BOTTLE OF 25. SL PRN ×2 (10:18→12:50)
[2019-11-08] MEDS ORDERED: MAGNESIUM SULFATE 2GM 50 ML IV ONE (10:30)
[2019-11-08] MEDS ORDERED: LIDO:MAALOX 1:1 20 ML SINGLE DOSE. PO PRN (11:00)
[2019-11-08 11:15] VITALS: BP 135/83
--- NOTE | 2019-11-08 11:46 | PDOC ---
PROVIDER NOTE PROVIDER NOTE PROVIDER NOTE Chart reviewed. EKG/labs reviewed. Discussed with nursing staff and nursing staff spoke to patient. Persistent pain requiring morphine and NTG suggestive of coronary disease. Will plan for transfer to [place] of cardiac cath. Thanks. DANYEL RAWLS MD Nov 08, 2019 11:46
[2019-11-08 12:49] VITALS: BP 149/81
[2019-11-08 13:00] VITALS: BP 133/70
[2019-11-08] MEDS ORDERED: MORPHINE SULFATE 4 MG/ML DISP.SYRIN. ONE (13:14)
[2019-11-08] MEDS ORDERED: MORPHINE SULFATE 4 MG/ML DISP.SYRIN. IV PRN (13:15)
--- NOTE | 2019-11-08 17:55 | EKG ---
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
== END 2019-11-08 15:08 | disposition short-term general hospital (02) | DRG 392 ==
LOC: ER 16:09 → 1 SOUTH 17:54
PROVIDERS: ADMIT Internal Medicine; ATTEND Internal Medicine
DX: K21.9 Gastro-esophageal reflux disease without esophagitis (principal); E11.9 Type 2 diabetes mellitus without complications; I10 Essential (primary) hypertension; Z90.710 Acquired absence of both cervix and uterus; F32.9 Major depressive disorder, single episode, unspecified; M19.90 Unspecified osteoarthritis, unspecified site; Z90.49 Acquired absence of other specified parts of digestive tract; Z90.721 Acquired absence of ovaries, unilateral; Z88.0 Allergy status to penicillin; Z88.2 Allergy status to sulfonamides; Z88.8 Allergy status to other drugs, medicaments and biological substances
CPT/HCPCS: 36415; 71045; 80053; 80061; 81001; 82947; 83735; 83880; 84484; 85007; 85025; 87086; 87186; 93005; 96360; 99285; J2270; J3475; J7030

== ENCOUNTER → 2021-06-14 | Outpatient (CLI) | payer MEDICARE ==
[~2021-06-14] MED LIST changes: +METF-658 PO; -METF500T11 PO
--- NOTE | 2021-06-14 09:26 | RAD ---
EXAM: Left neck sonogram. HISTORY: Left supraclavicular lymphadenopathy. TECHNIQUE: Sonographic imaging of the left supraclavicular region at the site of bowel concern was pe rformed. COMPARISON: None. FINDINGS: There is a 1.1 x 1.0 x 0.4 mm left supraclavicular lymph node at the site of probable alexia rn. This demonstrates a thickened cortex, but maintains a fatty hilum. No additional lesion is seen i n the region of concern. IMPRESSION: 1.1 cm nonspecific left supraclavicular lymph node at the site of palpable concern. This may be physiologic or reactive in etiology. No additional lesion is seen. Continued clinical follow-u p of palpable abnormality is recommended. Repeat imaging can be performed if there is continuing conc malaika. Electronically signed by: Olga Gramajo MD (06/14/2021 9:24 AM) [id number]
--- NOTE | 2021-06-14 10:06 | RAD ---
EXAM: Bilateral digital screening mammogram with tomosynthesis. HISTORY: 65-year-old female presents for screening mammography. TECHNIQUE: Full-field digital craniocaudal and mediolateral oblique 2D and 3D tomosynthesis images of both breasts are obtained for evaluation. Computer aided detection was applied. COMPARISON: 03/03/2017 and 11/03/2015 BREAST PARENCHYMAL DENSITY: Level B - Scattered fibroglandular densities. FINDINGS: There is no new suspicious mass, microcalcification or region of architectural distortion. There is a right axillary lymph node which is excluded from the [id number] on the study performed 03/03/2017. However, this is stable compared to a study performed 11/03/2015. There are stable areas of b enign-appearing nodularity within both breasts when allowing for differences in imaging technique. Th ere are a few benign calcifications. IMPRESSION: BI-RADS Category 2: Benign finding(s). RECOMMENDATION: Annual mammography is recommended. If your mammogram demonstrates that you have dense breast tissue, which could hide abnormalities, and if you have other risk factors for breast cancer that have been identified, you might benefit from s upplemental screening tests that may be suggested by your ordering physician. Dense breast tissue, i n and of itself, is a relatively common condition. This information is not provided to cause undue c oncern, but rather to raise your awareness and to promote discussion with your physician regarding th e presence of other risk factors, in addition to dense breast tissue. A report of your mammography re sults will be sent to you and your physician. You should contact your physician if you have any ques tions or concerns regarding this report. Mammography is a sensitive method for finding small breast cancers, but it does not detect them all a nd is not a substitute for careful clinical examination. A negative mammogram does not negate a clin ically suspicious finding and should not result in delay in biopsying a clinically suspicious abnorma lity. PQRS compliance statement - Patient information was entered into a reminder system with a target due date for the next mammogram. "Our facility is accredited by the [employer] Mammography Program." Electronically signed by: Olga Gramajo MD (06/14/2021 10:04 AM) [id number]
== END ==
LOC: MAMMO 08:14
PROVIDERS: ATTEND Family Medicine
DX: Z12.31 Encounter for screening mammogram for malignant neoplasm of breast (principal); Z00.00 Encounter for general adult medical examination without abnormal findings; R59.9 Enlarged lymph nodes, unspecified
CPT/HCPCS: 76881; 77063; 77067